=== PATIENT | male | born 1940 | race Caucasian/White ===

== ENCOUNTER → 2019-02-08 | Outpatient (CLI) | payer OTHER, MEDICARE ==
[~2019-02-08] MED LIST: ADULT LOW DOSE81 MG PO; CITRACAL + BON1 EACH PO; FISH OIL 1,0001 EAC5 PO; LATANOPROST2.5 ML OPHTHALMIC; METAMUCIL1 EAC1 PO; MULTIVITAMINS PO; NORCO 7.5-3251 EACH PO; TIMOLOL MA0.25 %/5 M OPHTHALMIC; ZOFRAN ODT4 MG SUBLING
== END | disposition home or self-care (01) ==
LOC: RAD 09:53
DX: M25.552 Pain in left hip (principal); Z96.642 Presence of left artificial hip joint; Z79.891 Long term (current) use of opiate analgesic; Z98.890 Other specified postprocedural states